=== PATIENT | female | born 1960 | race Caucasian/White ===

== ENCOUNTER 2023-06-03 10:37 | Inpatient (IN) | payer OTHER ==
[~2023-06-03] VITALS: Ht 165.1 cm; Wt 69.9 kg
[2023-06-03 10:54] VITALS: BP 144/86; PULSE 110; RESP 20; TEMP 98.9; O2SAT 96
[2023-06-03 12:11] LABS: BASOPHILS % (AUTO) 0.4 % (0.0-2.0); EOSINOPHILS # (AUTO) 0.1 K/uL (0-0.4); EOSINOPHILS % (AUTO) 0.6 % (0.0-4.0); HEMATOCRIT 36.6 % (36-48); HEMOGLOBIN 12.8 g/dL (12.0-16.0); LYMPHOCYTES # (AUTO) 1.7 K/uL (2.5-16.5); LYMPHOCYTES % (AUTO) 16.2 % (20.5-51.1); MEAN CORPUSCULAR HEMOGLOBIN 31 pg (27-31); MEAN CORPUSCULAR HGB CONC 35 g/dL (33-37); MEAN CORPUSCULAR VOLUME 88.9 fL (80-94); MONOCYTES # (AUTO) 0.7 K/uL (0.8-1.0); MONOCYTES % (AUTO) 6.8 % (1.7-9.3); NEUTROPHILS # (AUTO) 8.2 K/uL (1.8-7.7); PLATELET COUNT (AUTO) 315 K/uL (140-450); RED BLOOD CELL COUNT(AUTO) 4.11 MIL/uL (4.20-5.40); RED CELL DISTRIBUTION WIDTH 12.8 % (11.6-13.7); WHITE BLOOD COUNT (AUTO) 10.8 K/uL (4.8-10.8)
[2023-06-03 12:16] LABS: APPEARANCE,URINE CLEAR (CLEAR); BILIRUBIN,URINE NEGATIVE (NEGATIVE); BLOOD, URINE NEGATIVE (NEGATIVE); COLOR,URINE YELLOW (YELLOW); LEUKOCYTE ESTERASE ,URINE 1+ (NEGATIVE); NITRITE, URINE NEGATIVE (NEGATIVE); PROTEIN,URINE NEGATIVE (NEGATIVE); UGLUCOSE 2+ (NEGATIVE); UROBILINOGEN,URINE 0.2 EU/dL (0.2 - 1)
[2023-06-03 12:30] LABS: ALBUMIN 3.3 g/dL (3.4-5.0); BILIRUBIN,DIRECT 0.2 mg/dL (0.0-0.3); TOTAL BILIRUBIN 0.7 mg/dL (0.0-1.0); TOTAL PROTEIN, SERUM 8.8 g/dL (6.4-8.2)
[2023-06-03 12:36] LABS: RBC,URINE 0 /HPF (0-5)
[2023-06-03 12:37] LABS: BACTERIA,URINE 1+ /HPF (None Seen); MUCUS,URINE None Seen /LPF (None Seen); SQUAMOUS EPITHELIAL CELL,UR 0-3 (FEW) /LPF (0-3 (FEW)); WBC,URINE 0-5 /HPF (0-5)
[2023-06-03 12:49] LABS: ANION GAP 15.2 (8-16); CALCIUM 8.6 mg/dL (8.5-10.1); CARBON DIOXIDE 24.7 mmol/L (21-32); CREATININE 0.7 mg/dL (0.6-1.3); POTASSIUM 3.9 mmol/L (3.5-5.1)
[2023-06-03] MEDS ORDERED: KETOROLAC 30 MG/ML VIAL IVP ONE (14:45)
[2023-06-03] MEDS: NACL 0.9% 1,000 ML IV ONE (15:05)
[2023-06-03] MEDS ORDERED: METF-346 PO (15:10)
[2023-06-03] MEDS ORDERED: ASCO500T95 PO (15:10)
[2023-06-03] MEDS ORDERED: MAGN250T22 PO (15:10)
[2023-06-03] MEDS ORDERED: ONDANSETRON 4 MG/2 ML VIAL IVP PRN (15:10)
[2023-06-03] MEDS ORDERED: MULT-2253 PO (15:10)
[2023-06-03] MEDS ORDERED: ATOR20TA PO (15:10)
[2023-06-03] MEDS ORDERED: OSC500 PO (15:10)
[2023-06-03] MEDS ORDERED: ATEN50TA8 PO (15:10)
[2023-06-03] MEDS ORDERED: LEVO50CA2 PO (15:10)
[2023-06-03] MEDS ORDERED: FISH100053 PO (15:10)
[2023-06-03] MEDS ORDERED: DEXTROSE 50% 50 ML SYR IVP PRN (15:15)
[2023-06-03] MEDS ORDERED: INSULIN LISPRO SLIDING SCALE 100 UNITS/ML VIAL SUBQ PRN (15:15)
[2023-06-03] MEDS: metroNIDAZOLE 500 MG/NS PREMIX 100 ML IV ONE (15:21)
[2023-06-03] MEDS: ACETAMINOPHEN EXTRA STRENGTH 500 MG TAB PO ONE ×2 (15:53→16:29)
[2023-06-03] MEDS: BLOOD GLUCOSE MONITORING 1 DEV DEV FS SCH (16:44)
[2023-06-03] MEDS: CIPROFLOXACIN 400 MG/200ML-D5W 200 ML IV ONE (16:45)
[2023-06-03] MEDS: NACL 0.9% 1,000 ML IV SCH (16:54)
[2023-06-03 19:45] VITALS: O2SAT 95
[2023-06-03 21:15] VITALS: PULSE 70; RESP 18; O2SAT 96
[2023-06-03] MEDS: metroNIDAZOLE 500 MG/NS PREMIX 100 ML IV SCH (22:02)
[2023-06-04] VITALS: BP 138/71; PULSE 70; RESP 18; TEMP 97.4; O2SAT 96
[2023-06-04] MEDS: KETOROLAC 30 MG/ML VIAL IVP PRN (00:38)
[2023-06-04] MEDS: LEVOTHYROXINE 0.05 MG TAB PO SCH (06:01)
[2023-06-04 06:52] LABS: BASOPHILS % (AUTO) 0.4 % (0.0-2.0); EOSINOPHILS # (AUTO) 0.2 K/uL (0-0.4); EOSINOPHILS % (AUTO) 2.1 % (0.0-4.0); HEMATOCRIT 33.3 % (36-48); HEMOGLOBIN 11.7 g/dL (12.0-16.0); LYMPHOCYTES # (AUTO) 1.9 K/uL (2.5-16.5); LYMPHOCYTES % (AUTO) 25.8 % (20.5-51.1); MEAN CORPUSCULAR HEMOGLOBIN 31 pg (27-31); MEAN CORPUSCULAR HGB CONC 35 g/dL (33-37); MEAN CORPUSCULAR VOLUME 88.7 fL (80-94); MONOCYTES # (AUTO) 0.6 K/uL (0.8-1.0); MONOCYTES % (AUTO) 8.1 % (1.7-9.3); NEUTROPHILS # (AUTO) 4.7 K/uL (1.8-7.7); NEUTROPHILS % (AUTO) 63.6 % (42.2-75.2); PLATELET COUNT (AUTO) 275 K/uL (140-450); RED BLOOD CELL COUNT(AUTO) 3.75 MIL/uL (4.20-5.40); RED CELL DISTRIBUTION WIDTH 12.9 % (11.6-13.7); WHITE BLOOD COUNT (AUTO) 7.4 K/uL (4.8-10.8)
[2023-06-04 06:55] LABS: ANION GAP 13.4 (8-16); CALCIUM 8.1 mg/dL (8.5-10.1); CARBON DIOXIDE 24.4 mmol/L (21-32); CREATININE 0.7 mg/dL (0.6-1.3); POTASSIUM 3.8 mmol/L (3.5-5.1)
[2023-06-04 08:00] VITALS: BP 141/76; PULSE 69; RESP 18; TEMP 98; O2SAT 98
[2023-06-04] MEDS ORDERED: FATTY ACIDS PO SCH (09:00)
[2023-06-04] MEDS ORDERED: LEVOTHYROXINE SODIUM 50 MCG PO SCH (09:00)
[2023-06-04] MEDS ORDERED: NON-FORMULARY ITEM (Multivitamin (Multi-Vitamin Daily) 1 TAB) PO SCH (09:00)
[2023-06-04] MEDS ORDERED: OMEGA PO SCH (09:00)
[2023-06-04] MEDS ORDERED: FISH OIL PO SCH (09:00)
[2023-06-04] MEDS: MULTIVITAMIN 1 TAB PO SCH (09:11)
[2023-06-04] MEDS: atenoloL 50 MG TAB PO SCH (09:11)
[2023-06-04] MEDS: ASCORBIC ACID 500 MG TAB PO SCH (09:12)
[2023-06-04] MEDS: ATORVASTATIN 20 MG TAB PO SCH (09:13)
[2023-06-04] MEDS: CALCIUM CARBONATE 500 MG TAB PO SCH (09:15)
[2023-06-04 16:00] VITALS: BP 144/74; PULSE 65; RESP 18; TEMP 97.8; O2SAT 98
[2023-06-04] MEDS: MAGNESIUM HYDROXIDE 2400 MG/30 ML UDC PO PRN (16:51)
[2023-06-04] MEDS ORDERED: MELATONIN 3 MG TAB PO PRN (20:15)
[2023-06-04] MEDS: MELATONIN 3 MG TAB PO PRN (21:58)
[2023-06-04 22:00] VITALS: PULSE 79; RESP 18; O2SAT 94
[2023-06-05] VITALS: BP 148/67; PULSE 79; RESP 18; TEMP 97.8; O2SAT 94
[2023-06-05 06:11] LABS: BASOPHILS % (AUTO) 0.7 % (0.0-2.0); EOSINOPHILS # (AUTO) 0.1 K/uL (0-0.4); EOSINOPHILS % (AUTO) 2.8 % (0.0-4.0); HEMATOCRIT 33.8 % (36-48); HEMOGLOBIN 11.8 g/dL (12.0-16.0); LYMPHOCYTES # (AUTO) 1.6 K/uL (2.5-16.5); LYMPHOCYTES % (AUTO) 32.6 % (20.5-51.1); MEAN CORPUSCULAR HEMOGLOBIN 31 pg (27-31); MEAN CORPUSCULAR HGB CONC 35 g/dL (33-37); MEAN CORPUSCULAR VOLUME 88.4 fL (80-94); MONOCYTES # (AUTO) 0.4 K/uL (0.8-1.0); MONOCYTES % (AUTO) 8.4 % (1.7-9.3); NEUTROPHILS # (AUTO) 2.7 K/uL (1.8-7.7); NEUTROPHILS % (AUTO) 55.5 % (42.2-75.2); PLATELET COUNT (AUTO) 311 K/uL (140-450); RED BLOOD CELL COUNT(AUTO) 3.82 MIL/uL (4.20-5.40); RED CELL DISTRIBUTION WIDTH 13.3 % (11.6-13.7); WHITE BLOOD COUNT (AUTO) 4.9 K/uL (4.8-10.8)
[2023-06-05 06:32] LABS: ANION GAP 12.8 (8-16); CALCIUM 8.9 mg/dL (8.5-10.1); CARBON DIOXIDE 26.2 mmol/L (21-32); CREATININE 0.7 mg/dL (0.6-1.3)
[2023-06-05 08:30] VITALS: PULSE 80; RESP 20; O2SAT 99
[2023-06-05 10:41] VITALS: BP 135/67; PULSE 68; RESP 20; TEMP 97.1
== END 2023-06-05 11:30 | disposition home or self-care (01) | DRG 392 ==
LOC: MED 10:37 → MMU 15:14 → MTU 21:00
PROVIDERS: ADMIT Student in an Organized Health Care Education/Training Program; ATTEND Student in an Organized Health Care Education/Training Program
DX: K57.32 Diverticulitis of large intestine without perforation or abscess without bleeding (principal); E44.0 Moderate protein-calorie malnutrition; K56.0 Paralytic ileus; I10 Essential (primary) hypertension; E11.9 Type 2 diabetes mellitus without complications; Z68.25 Body mass index [BMI] 25.0-25.9, adult; Z85.42 Personal history of malignant neoplasm of other parts of uterus; Z79.899 Other long term (current) drug therapy
CPT/HCPCS: 36415; 80048; 80076; 81001; 82150; 82948; 83690; 84703; 85025; 87040; 87081; 87086; 96365; 99285; J0744; J1815; J1885; J3490